=== PATIENT | male | born 1985 | race Caucasian/White ===

== ENCOUNTER 2019-01-23 07:58 | Emergency (ER) | payer MEDICAID ==
[~2019-01-23] VITALS: Ht 177.8 cm; Wt 70.3 kg
[2019-01-23 08:00] VITALS: BP 135/65
--- NOTE | 2019-01-23 09:24 | NUR ---
PT SEEN AND EXAMINE BY DR GIMENEZ. D/C HOME W/ PO ANTIBIOTICS. STABLE CONDITION.
== END 2019-01-23 09:27 | disposition home or self-care (01) ==
LOC: ER 08:01
DX: M25.461 Effusion, right knee (principal); Z98.890 Other specified postprocedural states; Z88.0 Allergy status to penicillin; Z59.0 Homelessness